=== PATIENT | female | born 1940 | race Caucasian/White ===

== ENCOUNTER 2020-12-30 16:04 | Inpatient (IN) | payer MEDICARE ==
[~2020-12-30] VITALS: Ht 154.9 cm; Wt 61.5 kg
--- NOTE | 2020-12-30 16:27 | PHYS DOC ---
Adult General Chief Complaint Chief Complaint: SHORTNESS OF BREATH HPI HPI Patient is a 80-year-old female presenting via POV for generalized malaise. Patient has past medical history of high blood pressure and high cholesterol only, has been taking her medication for these daily. Reports recent major change in health when she was diagnosed with Covid December 15. She quarantined and provided supportive care to her self appropriately and recovered from this. Nonetheless, 10 days ago her . Ever since, family who is here today reported that patient has not been eating or drinking ever since. She has been depressed but has not voiced SI and/or HI. Today, patient appeared more depressed than usual prompting granddaughter who is been staying with patient to check patient's vitals. Patient was found to be saturating in the 80s on room air prompting granddaughter to transport patient to our ER for arrival. She is on no blood thinners, no history of SD or clots (DAMIR GUY DO) Review of Systems Review of Systems Fourteen body systems of review of systems have been reviewed. See HPI for pertinent positives and negative responses, other luke all other systems are negative, non-pertinent or non-contributory (DAMIR GUY DO) Physical Exam Physical Exam Constitutional: Well developed, well nourished, no acute distress, non-toxic appearance. HENT: Normocephalic, atraumatic, bilateral external ears normal, oropharynx moist, no oral exudates, nose normal. Eyes: PERRLA, EOMI, conjunctiva normal, no discharge. Neck: Normal range of motion, no tenderness, supple, no stridor. Cardiovascular: Heart rate regular, sinus rhythm, no murmurs rubs or gallops Lungs & Thorax: Increased work of breathing and hypoxic on room air on arrival with accessory muscle use and neck noted, bibasilar crackles Abdomen: Bowel sounds normal, soft, no tenderness, no masses, no pulsatile masses. Nonsurgical abdomen, no peritoneal signs Skin: Warm, dry, no erythema, no rash. Back: No tenderness, no CVA tenderness. Extremities: No tenderness, no cyanosis, no clubbing, ROM intact, no edema. Neurologic: Alert and oriented X 3, grossly normal motor & sensory function, no focal deficits noted. Psychologic: Depressed affect and mood (DAMIR GUY DO) Current Patient Data Vital Signs Vital Signs Date Time Temp Pulse Resp B/P (MAP) Pulse Ox O2 Delivery O2 Flow Rate FiO2 12/30/20 16:04 98.6 85 18 111/67 78 Room Air 12/30/20 19:02 4.0 Vital Signs Date Time Temp Pulse Resp B/P (MAP) Pulse Ox O2 Delivery O2 Flow Rate FiO2 12/31/20 12:16 79 27 121/70 (87) 95 Room Air 12/31/20 12:00 8.0 12/31/20 06:00 99.4 Lab Results Laboratory Tests Test 12/30/20 16:28 12/30/20 22:27 12/31/20 09:30 White Blood Count 9.2 x10^3/uL Red Blood Count 3.09 x10^6/uL Hemoglobin 9.8 g/dL Hematocrit 28.9 % Mean Corpuscular Volume 93 fL Mean Corpuscular Hemoglobin 32 pg Mean Corpuscular Hemoglobin Concent 34 g/dL Red Cell Distribution Width 13.3 % Platelet Count 263 x10^3/uL Neutrophils (%) (Auto) 80 % Lymphocytes (%) (Auto) 8 % Monocytes (%) (Auto) 11 % Eosinophils (%) (Auto) 1 % Basophils (%) (Auto) 0 % Neutrophils # (Auto) 7.4 x10^3uL Lymphocytes # (Auto) 0.7 x10^3/uL Monocytes # (Auto) 1.0 x10^3/uL Eosinophils # (Auto) 0.1 x10^3/uL Basophils # (Auto) 0.0 x10^3/uL Sodium Level 143 mmol/L Potassium Level 4.1 mmol/L Chloride Level 110 mmol/L Carbon Dioxide Level 23 mmol/L Anion Gap 10 Blood Urea Nitrogen 47 mg/dL Creatinine 1.5 mg/dL Estimated GFR (Cockcroft-Gault) 33.4 BUN/Creatinine Ratio 31 Glucose Level 145 mg/dL Calcium Level 8.2 mg/dL Phosphorus Level 1.9 mg/dL Magnesium Level 2.2 mg/dL Total Bilirubin 0.8 mg/dL Aspartate Amino Transf (AST/SGOT) 106 U/L Alanine Aminotransferase (ALT/SGPT) 54 U/L Alkaline Phosphatase 272 U/L Troponin I Quantitative < 0.017 ng/mL < 0.017 ng/mL FC-Lew-P-Type Natriuretic Peptide 2867 pg/mL Total Protein 6.2 g/dL Albumin 2.1 g/dL Albumin/Globulin Ratio 0.5 Urine Collection Type Unknown Urine Color Yellow Urine Clarity Cloudy Urine pH 6.0 Urine Specific [place] 1.010 Urine Protein 30 mg/dl Urine Glucose (UA) Neg mg/dL Urine Ketones (Stick) Neg mg/dL Urine Blood Mod Urine Nitrite Pos Urine Bilirubin Neg Urine Urobilinogen Dipstick 0.2 mg/dL Urine Leukocyte Esterase Neg Urine RBC 11-20 /HPF Urine WBC 11-20 /HPF Urine Squamous Epithelial Cells Few /LPF Urine Bacteria Many /HPF Current Medications Medications (Trade) Dose Ordered Sig/Rohan Route PRN Reason Start Time Stop Time Status Last Admin Dose Admin Aspirin (Aspirin Chewable) 324 mg 1X ONCE PO 12/30/20 16:30 12/30/20 16:47 DC 12/30/20 17:48 Iohexol (Omnipaque 350 Mg/ml) 100 ml 1X ONCE IV 12/30/20 16:45 12/30/20 16:47 DC 12/30/20 17:57 Sodium Chloride 1,000 ml @ 1,000 mls/hr 1X ONCE IV 12/30/20 17:45 12/30/20 18:44 DC 12/30/20 17:48 Enoxaparin Sodium (Lovenox 60mg Syringe) 50 mg 1X ONCE SQ 12/30/20 19:00 12/30/20 19:11 DC 12/30/20 19:01 Ondansetron HCl (Zofran) 4 mg PRN Q4HRS PRN IVP NAUSEA/VOMITING 12/30/20 19:15 12/31/20 19:14 (DAMIR GUY DO) EKG EKG EKG ordered and interpreted by myself at 1626 hrs. as sinus rhythm at 84 bpm, unremarkable intervals, left axis deviation, no obvious ischemic findings, no STEMI (DAMIR GUY DO) Radiology/Procedures Radiology/Procedures [] (DAMIR GUY DO) Impressions: CTA Chest with contrast: Clinical History: Reason: shob- 60mls omni 350, reduce dose and hydrate per dr / Spl. Instructions: / History: Shortness of breath. Axial helical images of the chest were obtained after the administration of 60 cc of IV Omni 350 and timed appropriately for a pulmonary arterial study. Conventional axial reconstruction was performed in addition to coronal, sagittal and bilateral oblique MIP (maximum intensity projection). This study was ordered to detect possible pulmonary embolism. FINDINGS: There are a few filling defects in segmental and subsegmental pulmonary arteries on the right. There is no central embolism. There is marked patchy opacities throughout the lungs with some peripheral predominance. There is multiple small mediastinal hilar lymph nodes. The thorac ic aorta appears normal. The thoracic aorta appears normal. There is coronary artery calcifications. Impression: 1. Study is positive for a few pulmonary emboli on the right. There is no central embolism. 2. Marked pulmonary infiltrates suggesting atypical pneumonia. This could be Covid pneumonia. End impression These results were called to the Emergency Department and verified by read back at the time of dictation.RS Compliance Statement: One or more of the following individualized dose reduction techniques were utilized for this examination: 1. Automated exposure control 2. Adjustment of the mA and/or kV according to patient size 3. Use of iterative reconstruction technique FOR INTERNAL CODING PURPOSES Critical result: Findings discussed with the emergency department at 12/30/2020 6:22 PM. RESULT CODE: (C) Electronically signed by: Long Quiroz III, MD (12/30/2020 6:24 PM) [facility] DICTATED AND SIGNED BY: LONG QUIROZ III, MD DATE: 12/30/201811 CC: DAMIR GUY DO; PCP,NO ~MTH0 0 (TRISTIAN BUI DO) Heart Score C/O Chest Pain: No HEART Score for Chest Pain: HEART Score for Chest Pain Response (Comments) Value History Moderately Suspicious 1 ECG Normal 0 Age > 65 2 Risk Factors >3 Risk Factors or Hx CAD 2 Total 5 Risk Factors: Risk Factors: DM, Current or recent (<one month) smoker, HTN, HLP, family history of CAD, obesity. Risk Scores: Risk Factors: DM, Current or recent (<one month) smoker, HTN, HLP, family history of CAD, obesity. (DAMIR GUY DO) Course & Med Decision Making Course & Med Decision Making 78% on room air on arrival that improved with supplemental oxygen. IV access obtained and comprehensive ER work-up started at time of my shift send. Comprehensive signout given to ongoing physician, please defer to their documentation regarding future care of patient (DAMIR GUY DO) Course & Med Decision Making The patient is on 4 L of oxygen by nasal cannula. She is resting comfortably and has oxygen saturations of 96%. The patient's CTA shows a pulmonary embolus and bilateral pneumonia likely Covid pneumonia. I have ordered 1 mg/kg of Lovenox. I will admit her to the hospital. I spoke with Dr. Crocker and he has accepted the patient for admission. (TRISTIAN BUI DO) Dragon Disclaimer Dragon Disclaimer This electronic medical record was generated, in whole or in part, using a voice recognition dictation system. (DAMIR GUY DO) Departure Departure: Impression: Primary Impression: Pulmonary embolism Additional Impression: COVID-19 Disposition: ADMITTED INPATIENT Condition: GUARDED Problem Qualifiers Primary Impression: Pulmonary embolism Pulmonary embolism type: multiple subsegmental (without acute cor pulmonale) Qualified Codes: I26.94 - Multiple subsegmental pulmonary emboli without acute cor pulmonale DAMIR GUY DO Dec 30, 2020 16:27 TRISTIAN BUI DO Dec 30, 2020 18:59
[2020-12-30] MEDS ORDERED: ASPIRIN CHEWABLE 81 MG TABLET. PO ONE (16:30)
--- NOTE | 2020-12-30 16:39 | EKG ---
[address] [address] Test Date: 2020-12-30 Test Time: 16:09:01 Pat Name: DANNA GAVIRIA Department: Room: Gender: F Pan Greaser: ALETA : 1940 Requested By: DAMIR GUY Order Number: [id number] Reading MD: Measurements Intervals Orestes Rate: 84 P: 90 HI: 120 QRS: -26 QRSD: 76 T: 18 QT: 342 QTc: 407 Interpretive Statements SINUS RHYTHM LEFTWARD AXIS OTHERWISE NORMAL ECG RI6.02 No previous ECG available for comparison
[2020-12-30] MEDS ORDERED: IOHEXOL 350 MG/ML 100 ML VIAL. IV ONE (16:45)
[2020-12-30 17:15] LABS: BASO % 0 % (0-3); EOS # 0.1 x10^3/uL (0.0-0.7); EOS % 1 % (0-3); HEMATOCRIT 28.9 % (36.0-47.0); HEMOGLOBIN 9.8 g/dL (12.0-15.5); LYMPH # 0.7 x10^3/uL (1.0-4.8); LYMPH % 8 % (24-48); MEAN CORPUSCULAR HEMOGLOBIN 32 pg (25-35); MEAN CORPUSCULAR HGB CONC 34 g/dL (31-37); MEAN CORPUSCULAR VOLUME 93 fL (79-100); MONO % 11 % (0-9); NEUT # 7.4 x10^3uL (1.8-7.7); NEUT % 80 % (31-73); PLATELET COUNT 263 x10^3/uL (140-400); RED BLOOD COUNT 3.09 x10^6/uL (3.50-5.40); RED CELL DISTRIBUTION WIDTH 13.3 % (11.5-14.5); WHITE BLOOD COUNT 9.2 x10^3/uL (4.0-11.0)
[2020-12-30 17:33] LABS: CALCIUM 8.2 mg/dL (8.5-10.1); CREATININE 1.5 mg/dL (0.6-1.0); GFR 33.4; POTASSIUM 4.1 mmol/L (3.5-5.1)
[2020-12-30 17:39] LABS: MAGNESIUM 2.2 mg/dL (1.8-2.4); PHOSPHORUS 1.9 mg/dL (2.6-4.7)
[2020-12-30 17:45] LABS: ALBUMIN 2.1 g/dL (3.4-5.0); ALBUMIN/GLOBULIN RATIO 0.5 (1.0-1.7); TOTAL BILIRUBIN 0.8 mg/dL (0.2-1.0); TOTAL PROTEIN 6.2 g/dL (6.4-8.2)
[2020-12-30] MEDS ORDERED: IV NORMAL SALINE 1,000ML 1,000 ML IV ONE (17:45)
--- NOTE | 2020-12-30 18:27 | RAD ---
CTA Chest with contrast: Clinical History: Reason: shob- 60mls omni 350, reduce dose and hydrate per dr / Spl. Instructions: / History: Shortness of breath. Axial helical images of the chest were obtained after the administration of 60 cc of IV Omni 350 and timed appropriately for a pulmonary arterial study. Conventional axial reconstruction was performed in addition to coronal, sagittal and bilateral oblique MIP (maximum intensity projection). This stud y was ordered to detect possible pulmonary embolism. FINDINGS: There are a few filling defects in segmental and subsegmental pulmonary arteries on the right. There is no central embolism. There is marked patchy opacities throughout the lungs with some peripheral predominance. There is mul tiple small mediastinal hilar lymph nodes. The thoracic aorta appears normal. The thoracic aorta appears normal. There is coronary artery calcifications. Impression: 1. Study is positive for a few pulmonary emboli on the right. There is no central embolism. 2. Marked pulmonary infiltrates suggesting atypical pneumonia. This could be Covid pneumonia. End impression These results were called to the Emergency Department and verified by read back at the time of dictat ion.PQRS Compliance Statement: One or more of the following individualized dose reduction techniques were utilized for this examinat ion: 1. Automated exposure control 2. Adjustment of the mA and/or kV according to patient size 3. Use of iterative reconstruction technique FOR INTERNAL CODING PURPOSES Critical result: Findings discussed with the emergency department at 12/30/2020 6:22 PM. RESULT CODE: (C) Electronically signed by: Tone Christiansen III, MD (12/30/2020 6:24 PM) [facility]
[2020-12-30] MEDS ORDERED: ENOXAPARIN ** NOTE DOSE ** SYRINGE SQ ONE (19:00)
[2020-12-30] MEDS ORDERED: ONDANSETRON PF 4 MG/2 ML VIAL. IVP PRN (19:15)
--- NOTE | 2020-12-30 19:36 | NUR ---
Pt received to ICU bed 4 on [facility]. Pt alert and cooperative and moved self to bed. she denies pain and is on 02 at 4 L. Pt cooperative with admission exam and questions. She is able to state name and then said it is the and she is unsure of anything else. She is not able to recount much health history or recall medications she is on. She was oriented to room call light explained an in her hand side rails up and instructed to call for help and not to get up by herself.
[2020-12-30] MEDS ORDERED: LISI-517 PO (20:59)
[2020-12-30] MEDS ORDERED: CARV3.1230 PO (20:59)
[2020-12-30] MEDS ORDERED: LEVO25TA4 PO (20:59)
[2020-12-30] MEDS ORDERED: GABA-586 PO (20:59)
[2020-12-30] MEDS ORDERED: ATOR40TA59 PO (20:59)
[2020-12-30 21:08] VITALS: BP 99/58
[2020-12-30 22:00] VITALS: BP_SYST 111; BP_DIAS 54; BP_DIAS 64
[2020-12-30 23:00] VITALS: BP 112/65
[2020-12-31] VITALS (17 sets, daily range): BP systolic 113–143; BP diastolic 56–76
--- NOTE | 2020-12-31 01:20 | NUR ---
Pt up to bedside toilet and voided and had small BM. Upon return to bed 02 sat was 76 and pt was having non productive coughing with wheezing. Non rebreather mask on at 10 L and sats increased into the mid 90's
--- NOTE | 2020-12-31 10:12 | HP ---
ATTENDING PHYSICIAN: Dr. Crocker CHIEF COMPLAINT: Shortness of breath. HISTORY OF PRESENT ILLNESS: The patient is an 80-year-old female brought in by her granddaughter. She has not been eating well. She has had some shortness of breath. She is very confused that she has underlying dementia. She has been cared for by several granddaughters at home. Her unfortunately about 10 days ago. He had been on dialysis, he had stopped dialysis. She had a workup which showed a CT scan. She had COVID exposure [address] showed some mild inflammatory changes at the bases, but she also has a new pulmonary embolus involving the right lower lobe. The clot burden is not too severe. She was on supplemental oxygen. She was admitted for further treatment and evaluation. She was given Lovenox in the ED last night. PAST MEDICAL HISTORY: Significant for essential hypertension, profound dementia, recent loss of spouse with depression. She also has hypothyroidism, on replacement. ALLERGIES: She has no known drug allergies. CURRENT MEDICATIONS: At home include Synthroid, lisinopril, Lipitor, Coreg, and Neurontin. SOCIAL HISTORY: She is a nonsmoker, nondrinker. FAMILY HISTORY: Unobtainable. REVIEW OF SYSTEMS: Unobtainable. PHYSICAL EXAMINATION: GENERAL: When I saw her, this is a pleasant female, in no acute distress. VITAL SIGNS: Her initial vital signs showed blood pressure 133/69, her respiratory rate was 26 and unlabored, pulse 82 and regular. She is afebrile. Oxygen saturation, she is up to 8 liters by nasal cannula to maintain adequate saturations. HEENT: Head is without trauma. Pupils are reactive. Sclerae nonicteric. Oropharynx is clear. NECK: Supple, no bruits identified. LUNGS: Diminished breath sounds at bases. CARDIOVASCULAR: Showed regular heart tones. No gallops. ABDOMEN: Soft. EXTREMITIES: Without edema. NEUROLOGIC FINDINGS: Pleasantly confused, focally intact. No deficits. PERTINENT LABORATORY AND X-RAY STUDIES: Her BNP was ____. Cardiac enzymes negative for coronary ischemia. Creatinine is 1.5 mg/dL, BUN 47. Hemoglobin was 9.8 grams, white count 9200. CT of the chest as noted. ASSESSMENT: 1. An 80-year-old female with acute on chronic respiratory failure. 2. Recent COVID infection. 3. Pulmonary embolus, acute, right lung. 4. Hypoxemia, requiring high dose oxygen. 5. Profound dementia. 6. Anemia of chronic disease. 7. Mild renal insufficiency due to dehydration. PLAN: 1. Admit to the ICU. 2. Lovenox is continued. 3. I will start Eliquis on her today. Given her renal clearance, I will start her on 5 mg b.i.d. 4. We will try to wean down supplemental oxygen. 5. She is a DNR per advance directives. I spoke with her granddaughter. 6. Tentative discharge plan when oxygen requirements are diminished. TRINH/FILEMON/KATHARINE DR: Loreta TID: [id number] CC: Eitan Moon
[2020-12-31 11:47] LABS: BILIRUBIN,URINE NEG (NEG); CLARITY,URINE CLOUDY; COLOR,URINE YELLOW; GLUCOSE,URINE NEG (NEG)
[2020-12-31 11:48] LABS: BACTERIA,URINE MANY /HPF (0-FEW); NITRITE,URINE POS (NEG); SQUAMOUS EPITHELIAL CELL,UR FEW /LPF; UROBILINOGEN,URINE 0.2 mg/dL (0.2 mg/dL)
[2020-12-31] MEDS ORDERED: ENOXAPARIN ** NOTE DOSE ** SYRINGE SQ SCH (18:00)
[2020-12-31] MEDS: APIXABAN 5 MG TABLET. PO SCH (21:33)
[2021-01-01 02:36] VITALS: BP 133/65
[2021-01-01 06:26] VITALS: BP 140/58
[2021-01-01] MEDS: APIXABAN 5 MG TABLET. PO SCH ×2 (07:37→19:36)
[2021-01-01] MEDS ORDERED: PHENYLEPHRINE SUPP.RECT. PR PRN (09:30)
[2021-01-01] MEDS ORDERED: PHENYLEPH/MINERAL OIL/PETROLAT RECTAL OINTMENT TUBE. RC PRN (09:30)
[2021-01-01] MEDS ORDERED: GLYCERIN/WITCH HAZEL TOPICAL PADS 40'S JAR. TP ONE (10:30)
[2021-01-01] MEDS: LEVOTHYROXINE 25 MCG TABLET. PO SCH (10:43)
[2021-01-01] MEDS: LORazepam 0.5 MG TABLET PO PRN ×2 (10:44→19:36)
[2021-01-01] MEDS: LISINOPRIL 5 MG TABLET. PO SCH (10:44)
[2021-01-01] MEDS: GABAPENTIN 300 MG CAPSULE. PO SCH (10:44)
[2021-01-01 11:21] VITALS: BP 133/66
[2021-01-01] MEDS ORDERED: AZITHROMYCIN 500 MG in IV NORMAL SALINE 250ML 250 ML IV ONE (14:00)
[2021-01-01 15:16] VITALS: BP 131/67
[2021-01-01] MEDS: CARVEDILOL 3.125 MG TABLET PO SCH (16:57)
[2021-01-01] MEDS ORDERED: REMDESIVIR LOAD in IV NORMAL SALINE 250ML TV IV ONE (17:15)
[2021-01-01] MEDS: DOCUSATE SODIUM 100 MG CAPSULE PO SCH (19:35)
[2021-01-01] MEDS: ATORVASTATIN CALCIUM 20 MG TABLET PO SCH (19:36)
[2021-01-01 21:36] VITALS: BP 144/78
--- NOTE | 2021-01-01 22:30 | PN ---
DATE: 01/01/2021 SUBJECTIVE: The patient is resting, slightly popped up in bed, in no apparent respiratory distress. She continued to be hypoxic and oxygen requirement is now 8 liters by nasal cannula. Denied any chest pain. OBJECTIVE: GENERAL: When I examined her, she was pale. No jaundice, cyanosis, or thyromegaly. No jugular venous distention. No limb edema. VITAL SIGNS: Her heart rate was 74, blood pressure was 133/68, her temperature is 97.8, respiratory rate was 25, and oxygen saturation was 97% on 8 liters of oxygen. HEAD, EYES, EARS, NOSE, AND THROAT: Normocephalic, atraumatic. NECK: Supple. HEART: Showed normal first and second heart sounds. No gallop or murmur. CHEST: Shows central trachea, equal bilateral chest expansion, air entry, vesicular breath sounds with bilateral basal crepitation, more so on the left than the right. I could not appreciate any rhonchi. ABDOMEN: Distended, soft, nontender. NEUROLOGIC: She was grossly intact, although she seemed to probably has early dementia. Her intake was 1917, no output was recorded. LABORATORY DATA: Her most recent lab work showed a white cell count of 9200, hemoglobin 10, hematocrit 30, MCV 93, and platelet count of 263,000. Her chemistry on admission showed a serum sodium 143, potassium 4.1, chloride 110, bicarbonate 23, anion gap of 10, BUN 47, creatinine 1.5. Estimated GFR was 33 mL per minute. Her glucose 145, calcium was 8.2, phosphorus 1.9, her magnesium was 2.2. Her total bilirubin, AST, ALT, alkaline phosphatase are slightly elevated. Her beta natriuretic peptide was 2867. Total protein was 6.2, albumin was 2.1. TSH was 1.158. ASSESSMENT: 1. Acute hypoxic respiratory failure. 2. COVID-19 pneumonia. 3. Pulmonary emboli. 4. Hypertension. 5. Hypothyroidism. 6. Dementia. 7. Depression. 8. Urinary tract infection. PLAN: To basically continue with oxygen supplementation, titrate to keep oxygen more than 92. I started on IV ceftriaxone, Zithromax, dexamethasone and remdesivir. I will repeat earlier labs tomorrow. I contacted the pharmacy to see whether we need to adjust the apixaban given her impaired kidney function. GOVIND/JENNIFER DR: Rakel TID: [id number]
--- NOTE | 2021-01-01 22:54 | NUR ---
Pt is anxious and intermittently confused. Frequently takes off NC and SpO2 quickly desats into the low 80's. Pt requiring reminders nearly Q5mins to keep O2 on. Pt on high-flow NC at 8L to keep sats >90%. PRN Ativan given as indicated.
[2021-01-02] VITALS (7 sets, daily range): BP systolic 111–145; BP diastolic 56–78
[2021-01-02] MEDS: LEVOTHYROXINE 25 MCG TABLET. PO SCH (06:18)
[2021-01-02 07:07] LABS: HEMATOCRIT 28.5 % (36.0-47.0); HEMOGLOBIN 9.5 g/dL (12.0-15.5); RED BLOOD COUNT 2.99 x10^6/uL (3.50-5.40); RED CELL DISTRIBUTION WIDTH 13.7 % (11.5-14.5)
[2021-01-02 07:23] LABS: ALBUMIN 1.9 g/dL (3.4-5.0); ALBUMIN/GLOBULIN RATIO 0.5 (1.0-1.7); CALCIUM 7.7 mg/dL (8.5-10.1); CREATININE 1.1 mg/dL (0.6-1.0); GFR 47.8; POTASSIUM 3.3 mmol/L (3.5-5.1); TOTAL BILIRUBIN 1.2 mg/dL (0.2-1.0); TOTAL PROTEIN 6.1 g/dL (6.4-8.2)
[2021-01-02] MEDS: LISINOPRIL 5 MG TABLET. PO SCH (09:00)
[2021-01-02] MEDS: DOCUSATE SODIUM 100 MG CAPSULE PO SCH (09:00)
[2021-01-02] MEDS: LACTOBACILLUS RHAMNOSUS GG 1 CAPSULE. PO SCH ×2 (10:35→20:58)
[2021-01-02] MEDS: GABAPENTIN 300 MG CAPSULE. PO SCH (10:35)
[2021-01-02] MEDS: AZITHROMYCIN 250 MG TABLET. PO SCH (10:35)
[2021-01-02] MEDS: DEXAMETHASONE SOD PHOS 10 MG/ML VIAL. IVP SCH (10:36)
[2021-01-02] MEDS: CARVEDILOL 3.125 MG TABLET PO SCH ×2 (10:36→17:08)
[2021-01-02] MEDS: APIXABAN 5 MG TABLET. PO SCH ×2 (10:36→20:59)
[2021-01-02] MEDS: REMDESIVIR 100mg in NORMAL SALINE 250ML X 4 DAYS IV SCH (17:09)
[2021-01-02] MEDS: ATORVASTATIN CALCIUM 20 MG TABLET PO SCH (20:58)
[2021-01-02] MEDS: LORazepam 0.5 MG TABLET PO PRN (20:59)
--- NOTE | 2021-01-02 22:33 | PN ---
SUBJECTIVE: The patient is resting almost flat in bed, in no apparent distress. She is awake, alert, continued to be confused, but denied any complaint. She continued to require 7 liters of oxygen to maintain her oxygen saturation at 91-92%. She desaturates quickly with exertion. PHYSICAL EXAMINATION: GENERAL: When I examined her, she was pale, but not jaundiced or cyanosed. No thyromegaly. No jugular venous distention. No limb edema. VITAL SIGNS: Her heart rate was 79, blood pressure was 111/57, temperature was 97.3, respiratory rate was 16 and oxygen saturation was 95% on 7 liters of oxygen. HEAD, EYES, EARS, NOSE, AND THROAT: Normocephalic, atraumatic. NECK: Supple. HEART: Showed normal first and second heart sounds, no gallop, rub or murmur. CHEST: Showed central trachea, equal bilateral chest expansion, air entry, vesicular breath sounds, bilateral crepitation. I could not appreciate any rhonchi. ABDOMEN: Slightly distended, soft, nontender. NEUROLOGIC: She was somewhat confused, but without any obvious lateralizing sign. LABORATORY DATA: Her lab work this morning showed a white cell count 12,000, hemoglobin 9.5, hematocrit 28.5, MCV 95 and platelet count 355,000. Her chemistry showed a serum sodium 144, potassium 3.3, chloride 112, bicarbonate 23, anion gap of 9, BUN 24, creatinine 1.1. Estimated GFR was 47 mL per minute. Her glucose was 100, calcium was 7.7. Total bilirubin, AST, ALT were normal. Alkaline phosphatase slightly elevated at 358. Her total protein was 6.1, albumin was 1.9. ASSESSMENT: 1. Acute hypoxic respiratory failure. 2. COVID-19 pneumonia. 3. Pulmonary emboli. 4. Hypertension. 5. Hypothyroidism. 6. Dementia. 7. Depression. 8. Urinary tract infection. Her urine culture has grown more than 100,000 colony forming units per mL of gram-negative rods, identified as Escherichia coli, sensitive to ceftriaxone. PLAN: My plan is to continue the IV antibiotic. Continue with dexamethasone. Continue with remdesivir as well as the apixaban. MALIKA DR: Rakel TID: [id number]
--- NOTE | 2021-01-03 04:39 | NUR ---
Very restless and active, has been awake all night; requires bedside intervention every 5-10 minutes to either replace oxygen and/or vitals monitoring equipment or heart monitor; up to bedside commode at least every hour, frequent incontinence of liquid stools, wears brief and using bedside commode with max assist; linens and gown changed x3 thus far; oriented to self only; prn Ativan given as ordered with no appreciable effect; O2 at 7L via humidified high-flow nasal canula to keep Sats 92-93%.
[2021-01-03] MEDS: LEVOTHYROXINE 25 MCG TABLET. PO SCH (06:07)
[2021-01-03 06:35] LABS: BASO % 0 % (0-3); EOS % 0 % (0-3); HEMATOCRIT 29.7 % (36.0-47.0); HEMOGLOBIN 9.8 g/dL (12.0-15.5); LYMPH # 0.5 x10^3/uL (1.0-4.8); LYMPH % 4 % (24-48); MEAN CORPUSCULAR HEMOGLOBIN 31 pg (25-35); MEAN CORPUSCULAR HGB CONC 33 g/dL (31-37); MEAN CORPUSCULAR VOLUME 92 fL (79-100); MONO # 0.6 x10^3/uL (0.0-1.1); MONO % 4 % (0-9); NEUT # 13.5 x10^3uL (1.8-7.7); NEUT % 92 % (31-73); PLATELET COUNT 404 x10^3/uL (140-400); RED BLOOD COUNT 3.22 x10^6/uL (3.50-5.40); RED CELL DISTRIBUTION WIDTH 13.6 % (11.5-14.5); WHITE BLOOD COUNT 14.7 x10^3/uL (4.0-11.0)
[2021-01-03 06:50] LABS: CALCIUM 7.8 mg/dL (8.5-10.1); CREATININE 1.1 mg/dL (0.6-1.0); GFR 47.8; POTASSIUM 3.3 mmol/L (3.5-5.1)
[2021-01-03 07:00] VITALS: BP 182/50
[2021-01-03 08:00] VITALS: BP_DIAS 0
[2021-01-03] MEDS ORDERED: ALBUTEROL SULFATE 8GM INHALER. INH PRN (10:15)
[2021-01-03] MEDS: LACTOBACILLUS RHAMNOSUS GG 1 CAPSULE. PO SCH ×2 (10:36→20:05)
[2021-01-03] MEDS: APIXABAN 5 MG TABLET. PO SCH ×2 (10:37→20:06)
[2021-01-03] MEDS: GABAPENTIN 300 MG CAPSULE. PO SCH (10:38)
[2021-01-03] MEDS: LISINOPRIL 5 MG TABLET. PO SCH (10:38)
[2021-01-03] MEDS: AZITHROMYCIN 250 MG TABLET. PO SCH (10:38)
[2021-01-03] MEDS: CARVEDILOL 3.125 MG TABLET PO SCH ×2 (10:39→17:22)
[2021-01-03] MEDS: DEXAMETHASONE SOD PHOS 10 MG/ML VIAL. IVP SCH (10:40)
[2021-01-03] MEDS: IPRATROPIUM/ALBUTEROL 20/100mcg/INH INHALER. INH SCH ×3 (10:40→19:20)
[2021-01-03] MEDS: REMDESIVIR 100mg in NORMAL SALINE 250ML X 4 DAYS IV SCH (17:22)
[2021-01-03 19:00] VITALS: BP 123/59
[2021-01-03 19:46] VITALS: BP 113/86
[2021-01-03] MEDS: ATORVASTATIN CALCIUM 20 MG TABLET PO SCH (20:06)
[2021-01-03 21:00] VITALS: BP 123/59
[2021-01-03 21:58] VITALS: BP 134/74
[2021-01-04] VITALS (7 sets, daily range): BP systolic 138–156; BP diastolic 67–84
[2021-01-04] MEDS: LEVOTHYROXINE 25 MCG TABLET. PO SCH (04:58)
--- NOTE | 2021-01-04 05:28 | NUR ---
Nursing note: Pt on 13L HFNC at beginning of shift. Throughout shift, pt required frequent reorientation regarding O2 purpose/necessity. Pt removed O2 very often throughout shift. HFNC adjusted multiple times, pt placed on NRB for comfort, mitts placed/replaced multiple times. Pt O2 low 90s (91-93%) with HFNC/NRB as long as it is not removed. Other VSS.
--- NOTE | 2021-01-04 07:02 | PN ---
DATE: 01/03/2021 SUBJECTIVE: The patient is resting slightly propped up in bed, clearly tachypneic. She is encephalopathic. She desaturates quickly with minimal exertion and she is now on 15 liters nonrebreather mask, maintaining her oxygen saturation around 90-91%. The patient herself expressed a desire not to be intubated; however, she would like to continue fighting and if at any time that she require intubation she will consider hospice. We have had lengthy discussion with her family and for now, we are going to continue to treat her actively unless she gets to a point where she require intubation by all means available. When I examined her this afternoon, she was somewhat pale, not jaundiced, cyanosed. No lymphadenopathy, no thyromegaly, no jugular venous distention. No lower limb edema. OBJECTIVE: VITAL SIGNS: Her heart rate was 81, blood pressure was 144/82, temperature was 97.8, respiratory rate 24 and oxygen saturation was 90% on 15 liters of oxygen by nonrebreather mask. HEAD, EYES, EARS, NOSE AND THROAT: Normocephalic, atraumatic. NECK: Supple. HEART: Normal first and second heart sounds. No gallop, rub or murmur. CHEST: Clear to auscultation, no crepitation or rhonchi. ABDOMEN: Distended, soft, nontender. NEUROLOGIC: She is encephalopathic, but without any obvious lateralizing sign. Her intake was 500, output was incompletely recorded. LABORATORY DATA: White cell count was 14,700, hemoglobin 9.8, hematocrit 29, MCV 92 and platelet count of 104,000. Her chemistry showed a serum sodium 145, potassium 3.3, chloride 113, bicarbonate 22, anion gap of 10. BUN 40, creatinine 1.1. Estimated GFR was 48 mL/min. Her glucose 160, calcium was 7.8. ASSESSMENT: 1. Acute hypoxic respiratory failure. 2. COVID-19 pneumonia. 3. Pulmonary emboli. 4. Hypertension. 5. Hypothyroidism. 6. Dementia. 7. Depression. 8. Urinary tract infection. Her urine culture has grown more than 100,000 colony forming units per mL of gram-negative rods identified as Escherichia coli, sensitive to ceftriaxone. PLAN: To continue with IV antibiotic. Continue with dexamethasone and remdesivir. Continue with apixaban. The patient is a DNR/DNI; however, the patient expressed a desire to continue fighting and when she comes to a point that require intubation, she will consider hospice. GAVIN/KATHARINE DR: Rakel TID: [id number]
[2021-01-04] MEDS: IPRATROPIUM/ALBUTEROL 20/100mcg/INH INHALER. INH SCH ×4 (08:00→20:30)
[2021-01-04] MEDS: LACTOBACILLUS RHAMNOSUS GG 1 CAPSULE. PO SCH ×2 (10:13→20:30)
[2021-01-04] MEDS: CARVEDILOL 3.125 MG TABLET PO SCH ×2 (10:13→17:35)
[2021-01-04] MEDS: GABAPENTIN 300 MG CAPSULE. PO SCH (10:14)
[2021-01-04] MEDS: AZITHROMYCIN 250 MG TABLET. PO SCH (10:14)
[2021-01-04] MEDS: APIXABAN 5 MG TABLET. PO SCH ×2 (10:14→20:30)
[2021-01-04] MEDS: LISINOPRIL 5 MG TABLET. PO SCH (10:14)
[2021-01-04] MEDS: DEXAMETHASONE SOD PHOS 10 MG/ML VIAL. IVP SCH (10:16)
[2021-01-04] MEDS: REMDESIVIR 100mg in NORMAL SALINE 250ML X 4 DAYS IV SCH (17:35)
[2021-01-04] MEDS: ATORVASTATIN CALCIUM 20 MG TABLET PO SCH (20:30)
[2021-01-04] MEDS: IV DEXTROSE 5 %-0.45 % NACL 1,000 ML IV SCH (20:30)
--- NOTE | 2021-01-04 23:09 | PN ---
DATE: 01/04/2021 SUBJECTIVE: The patient is resting, slightly propped up, sleeping comfortably. She continues to be on 15 liters nonrebreather mask and 12 liters per nasal cannula and maintaining her oxygen saturation at 96%. The nursing staff stated she continued to be confused and requires a lot of prompting, she went to take her medication of 8 drinks. PHYSICAL EXAMINATION: GENERAL: When I examined her, she was pale, but no jaundice, cyanosis, no lymphadenopathy, no thyromegaly, no jugular venous distention. No limb edema. VITAL SIGNS: Her heart rate was 70, blood pressure 140/76, temperature 96.7, respiratory rate was 18 and oxygen saturation was 96% on 15 liters by nonrebreather mask and 12 liters by nasal cannula. HEAD, EYES, EARS, NOSE, AND THROAT: Normocephalic, atraumatic. NECK: Supple. HEART: Normal first and second heart sounds, no gallop or murmur. CHEST: Shows central trachea, equal bilateral chest expansion, air entry, vesicular breath sounds. I could not appreciate any crepitation or rhonchi anteriorly. She has bilateral basal crepitation, more on the left than right. I could not appreciate any rhonchi. ABDOMEN: Distended, soft, nontender. NEUROLOGIC: She was grossly intact. Her intake over the last 24 hours was 940, no output was recorded. LABORATORY DATA: No lab work available today; however, her white cell count was 14,700, hemoglobin 10, hematocrit 30, MCV 92 and platelet count of 404,000. Chemistry also showed that her serum sodium 145, potassium 3.3, chloride 113, bicarbonate 22, anion gap of 10, BUN 40, creatinine 1.1. Estimated GFR was 47 mL per minute. ASSESSMENT: 1. Acute hypoxic respiratory failure. 2. COVID-19 pneumonia. 3. Pulmonary emboli. 4. Hypertension. 5. Hypothyroidism. 6. Dementia. 7. Depression. 8. Urinary tract infection and her urine has grown more than 100,000 colony forming units per mL of gram-negative rods identified as Escherichia coli sensitive to ceftriaxone. PLAN: To continue with all her current medication. The patient is a DNR/DNI; however, the patient expressed her desire to continue fighting and it comes to the point where she needs intubation. She will consider hospice. I will repeat all her labs including blood gases tomorrow. GOVIND BOYKIN: GOVIND/pretty TID: [id number]
[2021-01-05] VITALS (12 sets, daily range): BP systolic 113–154; BP diastolic 69–120
[2021-01-05] MEDS: LEVOTHYROXINE 25 MCG TABLET. PO SCH (06:12)
[2021-01-05 07:13] LABS: HEMATOCRIT 30.7 % (36.0-47.0); HEMOGLOBIN 10.1 g/dL (12.0-15.5); RED BLOOD COUNT 3.28 x10^6/uL (3.50-5.40); RED CELL DISTRIBUTION WIDTH 13.9 % (11.5-14.5); WHITE BLOOD COUNT 13.8 x10^3/uL (4.0-11.0)
[2021-01-05 07:32] LABS: ALBUMIN 1.7 g/dL (3.4-5.0); ALBUMIN/GLOBULIN RATIO 0.4 (1.0-1.7); CALCIUM 7.5 mg/dL (8.5-10.1); CREATININE 1.1 mg/dL (0.6-1.0); GFR 47.8; POTASSIUM 3.5 mmol/L (3.5-5.1); TOTAL BILIRUBIN 0.4 mg/dL (0.2-1.0); TOTAL PROTEIN 5.5 g/dL (6.4-8.2)
[2021-01-05] MEDS: IPRATROPIUM/ALBUTEROL 20/100mcg/INH INHALER. INH SCH ×4 (09:00→21:14)
[2021-01-05] MEDS: LISINOPRIL 5 MG TABLET. PO SCH (09:54)
[2021-01-05] MEDS: LACTOBACILLUS RHAMNOSUS GG 1 CAPSULE. PO SCH ×2 (09:54→21:13)
[2021-01-05] MEDS: DEXAMETHASONE SOD PHOS 10 MG/ML VIAL. IVP SCH (09:54)
[2021-01-05] MEDS: APIXABAN 5 MG TABLET. PO SCH ×2 (09:55→21:14)
[2021-01-05] MEDS: CARVEDILOL 3.125 MG TABLET PO SCH ×2 (09:55→18:07)
[2021-01-05] MEDS: GABAPENTIN 300 MG CAPSULE. PO SCH (09:55)
[2021-01-05] MEDS: AZITHROMYCIN 250 MG TABLET. PO SCH (09:55)
[2021-01-05] MEDS: IV DEXTROSE 5 %-0.45 % NACL 1,000 ML IV SCH (16:38)
[2021-01-05] MEDS: REMDESIVIR 100mg in NORMAL SALINE 250ML X 4 DAYS IV SCH (18:07)
[2021-01-05] MEDS: ATORVASTATIN CALCIUM 20 MG TABLET PO SCH (21:14)
[2021-01-05] MEDS: LORazepam 0.5 MG TABLET PO PRN (23:59)
[2021-01-06] VITALS (21 sets, daily range): BP systolic 104–170; BP diastolic 58–119
--- NOTE | 2021-01-06 02:43 | PN ---
DATE: 01/05/2021 SUBJECTIVE: The patient is resting, slightly propped up in bed, more awake today, responding appropriately at time. On questioning her, she did complain of dryness of her mouth, but otherwise she denied any complaint. The nursing staff stated that she is more awake, cooperative and compliant with her medication. PHYSICAL EXAMINATION: GENERAL: When I examined her, she was pale, but no jaundiced or cyanosed. No thyromegaly. No jugular venous distention. No limb edema. VITAL SIGNS: Her heart rate was 63, blood pressure 147/72, her temperature was 97.5, respiratory rate was 24 and oxygen saturation was 94% on 15 liters by nasal cannula as well as a high flow by nonrebreather mask. HEAD, EYES, EARS, NOSE, AND THROAT: Normocephalic, atraumatic. NECK: Supple. HEART: Normal first and second heart sounds, no gallop or murmur. CHEST: Showed central trachea, equal bilateral chest expansion, air entry, vesicular breath sounds with crepitation bilaterally. I could not really appreciate any rhonchi. ABDOMEN: Slightly distended, soft, nontender. NEUROLOGIC: She is demented without any obvious lateralizing sign. Her intake over the last 24 hours was 787. No output was recorded. LABORATORY DATA: As of this morning, her white cell count was 13,800, hemoglobin 10, hematocrit 30, MCV 94 and platelet count 459,000. Serum sodium was 146, potassium 3.5, chloride 116, bicarbonate 19, anion gap of 11, BUN 43, creatinine was 1.1. Estimated GFR was 48 mL per minute. Her glucose was 183 and calcium was 7.5. Total bilirubin, AST, ALT were normal. Alkaline phosphatase slightly elevated. Total protein 5.5, albumin is 1.7. ASSESSMENT: 1. Acute hypoxic respiratory failure. 2. COVID-19 pneumonia. 3. Pulmonary emboli. 4. Hypertension. 5. Hypothyroidism. 6. Dementia. 7. Depression. 8. Urinary tract infection with growth of more than 100,000 colony forming units per mL of gram-negative rods identified as Escherichia coli sensitive to ceftriaxone. PLAN: To continue with all her current medications. She is now DNR/DNI. She expressed her desire to continue fighting and she if she comes to a point where she needed to be intubated, she would consider hospice. AMM/AMADOU/NIS DR: Rakel TID: [id number]
--- NOTE | 2021-01-06 04:44 | NUR ---
Pt pulled out IV at shift change. Pt requiring frequent staff presence to keep lines and tubes in place. New IV established to Lt. wrist #22 and mits placed for safety. Pt requiring O2 at 15L HFNC plus 15L NRB to keep sats low 90's. Pt rapidly desats with any activity, even changing brief in bed. Pt has been incont of B+B. New order for Concepcion, 16F placed using aseptic technique and draining clear straw urine. Pt tolerated procedure fair. Pt often calling out and restless in bed, given PRN zydis and ativan with minimal effect.
[2021-01-06] MEDS: LEVOTHYROXINE 25 MCG TABLET. PO SCH (05:03)
[2021-01-06] MEDS: IPRATROPIUM/ALBUTEROL 20/100mcg/INH INHALER. INH SCH ×4 (08:00→20:19)
[2021-01-06] MEDS: GABAPENTIN 300 MG CAPSULE. PO SCH ×2 (09:00→09:03)
[2021-01-06] MEDS: LACTOBACILLUS RHAMNOSUS GG 1 CAPSULE. PO SCH ×3 (09:00→20:17)
[2021-01-06] MEDS: DEXAMETHASONE SOD PHOS 10 MG/ML VIAL. IVP SCH (09:02)
[2021-01-06] MEDS: AZITHROMYCIN 250 MG TABLET. PO SCH (09:03)
[2021-01-06] MEDS: LORazepam 0.5 MG TABLET PO PRN (09:03)
[2021-01-06] MEDS: APIXABAN 5 MG TABLET. PO SCH ×2 (09:03→20:18)
[2021-01-06] MEDS: LISINOPRIL 5 MG TABLET. PO SCH (09:03)
[2021-01-06] MEDS: CARVEDILOL 3.125 MG TABLET PO SCH ×2 (09:03→16:22)
[2021-01-06] MEDS ORDERED: ACETAMINOPHEN 325 MG TABLET PO ONE (09:15)
[2021-01-06] MEDS ORDERED: MORPHINE SULFATE 2 MG/ML DISP.SYRIN. IV PRN ×3 (09:45→13:15)
[2021-01-06] MEDS: IV DEXTROSE 5 %-0.45 % NACL 1,000 ML IV SCH (13:36)
--- NOTE | 2021-01-06 17:32 | NUR ---
SHIFT NOTE Pt on 15L NC and 15L NRB throughout shift but pt is very restless and continually removes NRB and NC dropping O2 down to 60-65%. Pt restless, hypoxic and agitated throughout shift. PT IS DNR/DNI. Morphine seemed to relax patient for limited time SEE EMAR. Family now at bedside to discuss further care of patient and consider option of Hospice care. CM aware of situation. Will continue to monitor.
[2021-01-06] MEDS: ATORVASTATIN CALCIUM 20 MG TABLET PO SCH (20:17)
[2021-01-06] MEDS: MORPHINE SULFATE 2 MG/ML DISP.SYRIN. IV PRN (20:17)
[2021-01-07] VITALS (12 sets, daily range): BP systolic 109–149; BP diastolic 54–81
[2021-01-07] MEDS: MORPHINE SULFATE 2 MG/ML DISP.SYRIN. IV PRN ×2 (01:04→10:22)
--- NOTE | 2021-01-07 02:24 | NUR ---
Pt rested from around 2000 to MN. Pt initially unable to rouse enough to take pills at HS. After some coaxing, pt awoke and took pills one at a time. Had some difficulty following instructions. Pt incont of stool, brief changed in bed. Pt desats rapidly with any movement and took 10-15 mins for sats to recover from 70's to upper 80's. Pt still requiring frequent reminders to keep NC and NRB in place.
[2021-01-07] MEDS: LEVOTHYROXINE 25 MCG TABLET. PO SCH (06:00)
[2021-01-07] MEDS: IV DEXTROSE 5 %-0.45 % NACL 1,000 ML IV SCH (07:15)
[2021-01-07] MEDS: CARVEDILOL 3.125 MG TABLET PO SCH ×2 (08:00→16:27)
[2021-01-07] MEDS: IPRATROPIUM/ALBUTEROL 20/100mcg/INH INHALER. INH SCH ×3 (08:00→16:00)
[2021-01-07] MEDS: LACTOBACILLUS RHAMNOSUS GG 1 CAPSULE. PO SCH (09:00)
[2021-01-07] MEDS: AZITHROMYCIN 250 MG TABLET. PO SCH (09:00)
[2021-01-07] MEDS: LISINOPRIL 5 MG TABLET. PO SCH (09:00)
[2021-01-07] MEDS: GABAPENTIN 300 MG CAPSULE. PO SCH (09:00)
[2021-01-07] MEDS: APIXABAN 5 MG TABLET. PO SCH (09:00)
[2021-01-07] MEDS ORDERED: MORPHINE SULFATE 4 MG/ML DISP.SYRIN. IV PRN (10:15)
[2021-01-07] MEDS: DEXAMETHASONE SOD PHOS 10 MG/ML VIAL. IVP SCH (15:34)
[2021-01-07] MEDS ORDERED: HALOPERIDOL LACT 5 MG/ML VIAL. IVP PRN (17:45)
[2021-01-08] MEDS ORDERED: APIXABAN 5 MG TABLET. PO SCH (21:00)
== END 2021-01-07 19:20 | disposition hospice, inpatient (51) | DRG 177 ==
LOC: ER 16:04 → ICU 19:20 → 1 SOUTH 01-07 18:45
PROVIDERS: ADMIT Hospitalist; ATTEND Hospitalist
PROC: 5A0935A Assistance with Respiratory Ventilation, Less than 24 Consecutive Hours, High Flow/Velocity Cannula (ICD-10-PCS; principal; 2020-12-31)
PROC: 5A0935A Assistance with Respiratory Ventilation, Less than 24 Consecutive Hours, High Flow/Velocity Cannula (ICD-10-PCS; 2021-01-01)
PROC: XW033E5 Introduction of Remdesivir Anti-infective into Peripheral Vein, Percutaneous Approach, New Technology Group 5 (ICD-10-PCS; 2021-01-01)
PROC: 5A0935A Assistance with Respiratory Ventilation, Less than 24 Consecutive Hours, High Flow/Velocity Cannula (ICD-10-PCS; 2021-01-03)
PROC: 5A0935A Assistance with Respiratory Ventilation, Less than 24 Consecutive Hours, High Flow/Velocity Cannula (ICD-10-PCS; 2021-01-04)
PROC: 5A0935A Assistance with Respiratory Ventilation, Less than 24 Consecutive Hours, High Flow/Velocity Cannula (ICD-10-PCS; 2021-01-05)
PROC: 5A0935A Assistance with Respiratory Ventilation, Less than 24 Consecutive Hours, High Flow/Velocity Cannula (ICD-10-PCS; 2021-01-06)
PROC: 5A0935A Assistance with Respiratory Ventilation, Less than 24 Consecutive Hours, High Flow/Velocity Cannula (ICD-10-PCS; 2021-01-07)
DX: U07.1 COVID-19 (principal); J96.21 Acute and chronic respiratory failure with hypoxia; J12.82 Pneumonia due to coronavirus disease 2019; I26.99 Other pulmonary embolism without acute cor pulmonale; N39.0 Urinary tract infection, site not specified; G93.40 Encephalopathy, unspecified; E78.00 Pure hypercholesterolemia, unspecified; F03.90 Unspecified dementia, unspecified severity, without behavioral disturbance, psychotic disturbance, mood disturbance, and anxiety; E03.9 Hypothyroidism, unspecified; D63.8 Anemia in other chronic diseases classified elsewhere; E86.0 Dehydration; N28.9 Disorder of kidney and ureter, unspecified; I10 Essential (primary) hypertension; F32.9 Major depressive disorder, single episode, unspecified; B96.20 Unspecified Escherichia coli [E. coli] as the cause of diseases classified elsewhere; Z66 Do not resuscitate; Z81.8 Family history of other mental and behavioral disorders
CPT/HCPCS: 36415; 71275; 80048; 80053; 81001; 83735; 83880; 84100; 84443; 84484; 85025; 85027; 87077; 87086; 93005; 96360; 96372; J0456; J0696; J1100; J1650; J2270; J7050; Q9967; 99285-25; J7030

== ENCOUNTER 2021-01-07 19:54 | Inpatient (IN) | payer MEDICARE, OTHER ==
[~2021-01-07 19:54] MED LIST: ATOR40TA59 PO; CARV3.1230 PO; GABA-586 PO; LEVO25TA4 PO; LISI-517 PO
[2021-01-07] MEDS ORDERED: MORPHINE SULFATE 4 MG/ML DISP.SYRIN. IV PRN (20:00)
[2021-01-07] MEDS ORDERED: HALOPERIDOL LACT 5 MG/ML VIAL. IVP PRN (20:00)
[2021-01-07] MEDS ORDERED: MORPHINE SULFATE 2 MG/ML DISP.SYRIN. IV PRN (20:00)
[2021-01-07] MEDS ORDERED: ACETAMINOPHEN 650 MG SUPP.RECT. PR PRN (20:00)
[2021-01-07] MEDS ORDERED: BISACODYL 10 MG SUPP.RECT PR PRN (20:00)
[2021-01-07] MEDS ORDERED: SCOPOLAMINE 1.5MG PATCH. TD SCH (20:15)
[2021-01-07] MEDS ORDERED: ATROPINE 1% OPHTH SOLUTION 5ML BOTTLE. SL PRN (21:00)
[2021-01-07] MEDS ORDERED: ATROPINE 1% OPHTH SOLUTION 5ML BOTTLE. SL SCH (21:00)
[2021-01-07] MEDS: MORPHINE SULFATE 30 MG/30 ML 30 ML IV PRN (21:10)
--- NOTE | 2021-01-07 22:00 | NUR ---
PT with increased agitation pulling off oxygen.
[2021-01-07 22:10] VITALS: BP 135/75
--- NOTE | 2021-01-08 01:22 | PN ---
DATE: 01/07/2021 SUBJECTIVE: The patient is resting, slightly propped up in bed, continued to do poorly. Continued to be markedly tachypneic, hypoxic. She is requiring 30 liters of oxygen by nasal cannula as well as by nonrebreather mask, but she does not keep the oxygen on. Apparently, the family has decided to go on hospice around 4:30 this afternoon. PHYSICAL EXAMINATION: GENERAL: When I saw her, she was pale, but no jaundice, cyanosis or thyromegaly. No jugular venous distention. No limb edema. VITAL SIGNS: Her heart rate was 88, blood pressure was 114/81, temperature was 98.1, respiratory rate was 32 and oxygen saturation was 79% on 15 liters by nasal cannula. HEAD, EYES, EARS, NOSE, AND THROAT: Normocephalic, atraumatic. NECK: Supple. HEART: Showed normal first and second heart sounds, no gallop, rub or murmur. CHEST: Shows central trachea, equal bilateral expansion, air entry, vesicular breath sounds with bilateral basal crepitation. I could hear a very few scattered rhonchi. ABDOMEN: Distended, soft, nontender. NEUROLOGIC: She is lethargic, but arousable. All other cranial nerves intact. He moves extremities without difficulty. Her intake and output are incompletely recorded. LABORATORY DATA: No lab works were done this morning. ASSESSMENT: 1. Acute hypoxic respiratory failure. 2. COVID-19 pneumonia. 3. Pulmonary emboli. 4. Hypertension. 5. Hypothyroidism. 6. Dementia. 7. Depression. 8. Urinary tract infection. PLAN: To continue with current medication. She is now DNR/DNI. The patient will be discharged to inpatient hospice once the family had made up their mind. FAUSTO DR: Rakel TID: [id number]
[2021-01-08 06:27] VITALS: BP 87/46
--- NOTE | 2021-01-08 09:31 | PN ---
DATE: 01/08/2021 ATTENDING PHYSICIAN: Dr. Sawant. SUBJECTIVE: The patient is unresponsive. She is comfortable with medication. She was admitted to hospice yesterday. OBJECTIVE FINDINGS: VITAL SIGNS: Blood pressure this morning is 87/46, temperature 98.7, oxygen saturation marginal 4 liters between 70% and 80%. HEENT: Head is without trauma. Pupils are reactive. Sclerae nonicteric. Oropharynx clear. NECK: Supple. LUNGS: Shallow respirations. CARDIOVASCULAR: Showed distant heart tones. ABDOMEN: Soft. EXTREMITIES: Without edema. NEUROLOGIC: Comatose. ASSESSMENT: 1. An 80-year-old female with acute on chronic hypoxemic respiratory failure. 2. COVID-19 pneumonia. 3. Recent pulmonary emboli. 4. Hypertension. 5. Dementia. 6. Depression. PLAN: 1. Comfort measures. 2. Family at bedside. 3. Orders per [facility]. TRINH/LESVIA DR: TRINH/pretty TID: [id number]
[2021-01-08] MEDS: MORPHINE SULFATE 30 MG/30 ML 30 ML IV PRN ×2 (09:55→16:58)
--- NOTE | 2021-01-08 20:24 | NUR ---
PT noted on telemetry to be rapidly decreasing in pulse rate. RN went to room. PT noted with long apneic episodes and decreasing heart rate. RN stayed with family and PT until PT completely without breath sounds and no heart beat on telemetry, by auscultation or palpation noted at 1939. Second nurse verification obtained by Neena Slade. [employer], Yasmine, Dr. Crocker and Dr. Sawant notified. home requested to be [facility] in [place], [place]. Jewelry removed and taken home by family present at time of (2 granddaughters who had been with PT for past 24 hours).
--- NOTE | 2021-01-08 22:36 | NUR ---
[facility] notified immediately after time of . home notified by [facility]. home en route.
--- NOTE | 2021-01-09 08:39 | DS ---
ATTENDING PHYSICIAN: Dr. Mishra. FINAL DISCHARGE DIAGNOSES: 1. Acute on chronic hypoxemic respiratory failure. 2. COVID-19 pneumonia. 3. Pulmonary emboli. 4. Hypertension. 5. Dementia. 6. Depression. HISTORY AND PHYSICAL: The patient is an 80-year-old female with a recent diagnosis of COVID pneumonia. She also developed bilateral pulmonary emboli and was admitted for further treatment and evaluation. She was in angel respiratory failure requiring supplemental oxygen. Because of her decline and underlying issues, the family requested comfort measures. She was sent to the hospice. She was discharged from the medical floor and admitted to hospice for palliative care. PHYSICAL EXAMINATION: Please see the dictated note. PERTINENT LABORATORY AND X-RAY STUDIES: On the database. COURSE IN THE HOSPITAL: She was admitted to hospice. She was given supplemental oxygen. Family was at the bedside. They were allowed to keep a visual. Shortly on the second hospital day, the patient succumbed to her illness. She was pronounced on the evening of 01/08/2021. Family was at the bedside. PASQUALE DR: Loreta TID: [id number] CC: QUAN MISHRA MD
== END 2021-01-09 00:07 | DRG 175 ==
LOC: 1 SOUTH 19:54
PROVIDERS: ADMIT Internal Medicine; ATTEND Internal Medicine
PROC: 5A0935A Assistance with Respiratory Ventilation, Less than 24 Consecutive Hours, High Flow/Velocity Cannula (ICD-10-PCS; principal; 2021-01-07)
DX: I26.99 Other pulmonary embolism without acute cor pulmonale (principal); U07.1 COVID-19; J12.82 Pneumonia due to coronavirus disease 2019; J96.21 Acute and chronic respiratory failure with hypoxia; N39.0 Urinary tract infection, site not specified; E03.9 Hypothyroidism, unspecified; F03.90 Unspecified dementia, unspecified severity, without behavioral disturbance, psychotic disturbance, mood disturbance, and anxiety; F32.9 Major depressive disorder, single episode, unspecified; I10 Essential (primary) hypertension; Z51.5 Encounter for palliative care; Z66 Do not resuscitate
CPT/HCPCS: J1630; J2270; Q5005